=== PATIENT | male | born 1970 | race Caucasian/White ===

== ENCOUNTER 2020-03-20 02:02 | Emergency (ER) | payer MEDICAID ==
[~2020-03-20] VITALS: Ht 177.8 cm; Wt 118.0 kg
[2020-03-20] MEDS ORDERED: DIPHENHYDRAMINE 50MG/ML VIAL IV ONE (03:15)
[2020-03-20] MEDS ORDERED: HALOPERIDOL LACTATE 5MG/ML VIAL IM ONE ×2 (03:15→21:00)
[2020-03-20 03:36] LABS: BASOPHILS % 0.4 % (0.0-2.0); EOSINOPHILS % 0.1 % (0.0-5.0); HEMATOCRIT. 40.3 % (42.0-52.0); HEMOGLOBIN. 13.5 g/dL (14.0-18.0); LYMPHOCYTES % 8.1 % (20.0-50.0); MEAN CORPUSCULAR HEMOGLOBIN 29.4 pg (28.0-32.0); MEAN CORPUSCULAR VOLUME 87.8 fL (80.0-94.0); MEAN PLATELET VOLUME 7.8 fl (7.4-10.4); MONOCYTES % 6.1 % (2.0-8.0); NEUTROPHILS % 85.3 % (40.0-76.0); PLATELET 336 x1000/uL (130-400); RED BLOOD CELL COUNT 4.59 mill/uL (4.7-6.1); RED CELL DISTRIBUTION WIDTH 13.4 % (11.6-14.6)
[2020-03-20 03:44] LABS: CHLORIDE 112 mEq/L (98-107)
[2020-03-20 03:48] LABS: ETHANOL BLOOD < 10 mg/dL
[2020-03-20 04:30] LABS: HEPATITIS B SURFACE ANTIGEN NEGATIVE
[2020-03-20 04:45] LABS: *COCAINE SCREEN URINE NEGATIVE (NEGATIVE); METHADONE URINE SCREEN NEGATIVE (NEGATIVE); OPIATES URINE SCREEN NEGATIVE (NEGATIVE); PHENCYCLIDINE URINE SCREEN NEGATIVE (NEGATIVE)
[2020-03-20 04:46] LABS: *AMPHETAMINES SCREEN URINE NEGATIVE (NEGATIVE); *BARBITURATES SCREEN URINE NEGATIVE (NEGATIVE); *BENZODIAZEPINES SCREEN URINE NEGATIVE (NEGATIVE); CANNABINOID URINE SCREEN NEGATIVE (NEGATIVE)
[2020-03-20 05:00] LABS: HEPATITIS A AB IGM NEGATIVE (NEGATIVE)
[2020-03-20 07:18] LABS: BASOPHILS % 0.4 % (0.0-2.0); HEMATOCRIT. 40.4 % (42.0-52.0); HEMOGLOBIN. 13.6 g/dL (14.0-18.0); LYMPHOCYTES % 9.7 % (20.0-50.0); MEAN CORPUSCULAR HEMOGLOBIN 29.7 pg (28.0-32.0); MEAN CORPUSCULAR VOLUME 88.4 fL (80.0-94.0); MEAN PLATELET VOLUME 7.1 fl (7.4-10.4); MONOCYTES % 7.2 % (2.0-8.0); NEUTROPHILS % 82.7 % (40.0-76.0); PLATELET 257 x1000/uL (130-400); RED BLOOD CELL COUNT 4.57 mill/uL (4.7-6.1); RED CELL DISTRIBUTION WIDTH 13.5 % (11.6-14.6)
[2020-03-20] MEDS ORDERED: CHLORDIAZEPOXIDE 25MG CAPSULE PO ONE (17:45)
[2020-03-20] MEDS: AMLODIPINE 10MG TABLET PO SCH (18:35)
[2020-03-20 20:40] LABS: CLARITY URINE CLOUDY (CLEAR); COLOR URINE DARK YELLOW (YELLOW); KETONES URINE 1+ (NEGATIVE); LEUKOCYTE ESTERASE URINE 3+ (NEGATIVE); NITRITE URINE NEGATIVE (NEGATIVE); OCCULT BLOOD URINE TRACE (NEGATIVE); PROTEIN URINE 2+ (NEGATIVE); SPECIFIC GRAVITY URINE 1.026 (1.005-1.030)
[2020-03-20] MEDS ORDERED: DIPHENHYDRAMINE 50MG/ML VIAL IM ONE (21:00)
[2020-03-21] MEDS ORDERED: SODIUM CHLORIDE 0.9% 1,000 ML IV ONE (01:49)
[2020-03-21] MEDS ORDERED: ACETAMINOPHEN 325MG TABLET PO STA (01:49)
[2020-03-21] MEDS ORDERED: CEFTRIAXONE 1 G PREMIX 50 ML IV ONE (02:00)
[2020-03-21] MEDS ORDERED: TETANUS, DIPHTHERIA, PERTUSSIS VAC/PF 0.5ML (>7YR OLD) IM ONE (03:30)
[2020-03-21] MEDS: CEPHALEXIN 250MG CAPSULE PO SCH ×2 (10:00→17:00)
[2020-03-21] MEDS: AMLODIPINE 10MG TABLET PO SCH (10:00)
[2020-03-22] MEDS: AMLODIPINE 10MG TABLET PO SCH (09:00)
[2020-03-22] MEDS: CEPHALEXIN 250MG CAPSULE PO SCH ×2 (09:00→17:00)
[2020-03-22 10:20] LABS: CHLORIDE 116 mEq/L (98-107)
[2020-03-22] MEDS ORDERED: HALOPERIDOL LACTATE 5MG/ML VIAL IM STA (19:36)
[2020-03-22] MEDS ORDERED: DIPHENHYDRAMINE 50MG/ML VIAL IM STA (19:36)
[2020-03-23] MEDS: AMLODIPINE 10MG TABLET PO SCH (10:25)
[2020-03-23] MEDS: CEPHALEXIN 250MG CAPSULE PO SCH ×2 (10:25→17:47)
[2020-03-23] MEDS ORDERED: AMLODIPINE 10MG TABLET PO ONE (18:00)
[2020-03-23] MEDS ORDERED: HALOPERIDOL LACTATE 5MG/ML VIAL IM PRN (20:45)
[2020-03-23] MEDS ORDERED: LORAZEPAM 2MG/ML CPJ IM PRN (20:45)
[2020-03-24] MEDS: DIPHENHYDRAMINE 50MG/ML VIAL IM PRN (03:23)
[2020-03-24] MEDS: AMLODIPINE 10MG TABLET PO SCH (11:29)
[2020-03-24] MEDS: CEPHALEXIN 250MG CAPSULE PO SCH ×2 (11:29→18:50)
[2020-03-25] MEDS: CEPHALEXIN 250MG CAPSULE PO SCH (11:15)
[2020-03-25] MEDS: AMLODIPINE 10MG TABLET PO SCH (11:15)
[2020-03-25 14:52] VITALS: BP 169/81
[2020-03-25] MEDS ORDERED: ZIPRASIDONE HCL 20MG CAPSULE PO ONE (17:00)
== END 2020-03-25 14:32 | disposition home or self-care (01) ==
LOC: ER 02:02
DX: S81.812A Laceration without foreign body, left lower leg, initial encounter (principal); S81.811A Laceration without foreign body, right lower leg, initial encounter; F23 Brief psychotic disorder; R45.851 Suicidal ideations; R73.9 Hyperglycemia, unspecified; R00.0 Tachycardia, unspecified; Z78.1 Physical restraint status; Z75.1 Person awaiting admission to adequate facility elsewhere; Z98.890 Other specified postprocedural states; W22.09XA Striking against other stationary object, initial encounter; Y93.39 Activity, other involving climbing, rappelling and jumping off; Y92.512 Supermarket, store or market as the place of occurrence of the external cause; Y99.8 Other external cause status
CPT/HCPCS: 36415; 80048; 80305; 80307; 80320; 80329; 81003; 82962; 85025; 86705; 86709; 86803; 87086; 87340; 90471; 90715; 93005; 96365; 96372; 96375; 99285; C9803; J0696; J1200; J1630; J7030; U0003; 87635; G0480